=== PATIENT | female | born 1975 | race Caucasian/White ===

== ENCOUNTER → 2016-12-27 | Outpatient (CLI) | payer OTHER ==
[~2016-12-27] MED LIST: ALEVE220 MG PO; ASPIRIN EC81 MG PO; ELAVIL25 MG PO; IMITREX50 MG PO; LEXAPRO10 MG PO; THERA-VITE W/ B1 TAB PO; TYLENOL325 MG PO; ZOFRAN4 MG PO
== END | disposition disaster alternative care site (69) ==
LOC: GBCOE 07:00
DX: Z12.31 Encounter for screening mammogram for malignant neoplasm of breast (principal)
CPT/HCPCS: G0202